=== PATIENT | female | born 1935 | race Caucasian/White ===

== ENCOUNTER 2022-02-27 13:29 | Emergency (ER) | payer OTHER ==
[~2022-02-27] VITALS: Ht 162.6 cm; Wt 63.5 kg
--- NOTE | 2022-02-27 13:45 | NUR ---
ER at bedside examining patient.
[2022-02-27 14:02] VITALS: BP_SYST 176
--- NOTE | 2022-02-27 14:11 | NUR ---
Patient to ER bed H2 to gown for evaluation. Side rails up. Report given to Gabi GONZALEZ.
--- NOTE | 2022-02-27 14:30 | NUR ---
Pt has no complaints. Pt to Xray dept. via wheel chair.
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
--- NOTE | 2022-02-27 17:29 | NUR ---
Patient given written and verbal discharge instructions and verbalizes understanding. ER MD discussed with patient the results and treatment provided. Patient in stable condition. ID arm band removed. DMV paperwork prepared physician signed. Opportunity for questions provided and answered. Medication side effect fact sheet provided.
[2022-02-27 17:30] VITALS: BP_SYST 168
== END 2022-02-27 17:29 | disposition home or self-care (01) ==
LOC: SED 13:29
DX: S20.214A Contusion of middle front wall of thorax, initial encounter (principal); Z79.899 Other long term (current) drug therapy; V49.40XA Driver injured in collision with unspecified motor vehicles in traffic accident, initial encounter; Y93.89 Activity, other specified; Y92.89 Other specified places as the place of occurrence of the external cause; Y99.8 Other external cause status
CPT/HCPCS: 71045; 99283